=== PATIENT | male | born 1950 | race Caucasian/White ===

== ENCOUNTER 2020-12-17 18:07 | Emergency (ER) | payer OTHER ==
[2020-12-17 19:02] LABS: Absolute Lymphocytes (CBC) 0.5 K/uL (0.7-4.9); Basophils % 0.3 % (0-1.3); MPV 9.6 fL (7.6-11.3)
[2020-12-17 19:03] LABS: Protime INR 1.06
--- NOTE | 2020-12-17 19:07 | RAD REPORT ---
EXAM DESCRIPTION: RAD - Chest Single View - 12/17/2020 6:48 pm CLINICAL HISTORY: FEVER COMPARISON: <Comparisons> FINDINGS: No evidence of edema or pneumonia. The heart size is within normal limits.No acute osseous abnormality. No significant pleural effusions or pneumothorax. IMPRESSION: No acute cardiopulmonary disease.
[2020-12-17] MEDS ORDERED: MECLIZINE HCL 12.5 MG TAB ONE (19:19)
--- NOTE | 2020-12-17 19:33 | RAD REPORT ---
EXAM DESCRIPTION: CT - Head Brain Wo Cont - 12/17/2020 7:21 pm CLINICAL HISTORY: DIZZINESS COMPARISON: <Comparisons> TECHNIQUE: All CT scans are performed using dose optimization technique as appropriate and may inclu de automated exposure control or mA/KV adjustment according to patient size. FINDINGS: No intracranial hemorrhage, hydrocephalus or extra-axial fluid collection.No areas of brai n edema or evidence of midline shift. Circumferential thickening in the right maxillary sinus. The calvarium is intact. IMPRESSION: No acute intracranial abnormality.
[2020-12-17 19:44] LABS: ALT/SGPT 22 U/L (12-78); AST/SGOT 32 U/L (15-37); Albumin 3.1 g/dL (3.4-5.0); Alkaline Phosphatase 35 U/L (45-117); BUN Blood Urea Nitrogen 18 mg/dL (7-18); Bicarbonate 28 mmol/L (21-32); Bilirubin Direct 0.2 mg/dL (0-0.2); Bilirubin Total 0.5 mg/dL (0.2-1.0); Glucose Level 120 mg/dL (74-106); Magnesium 2.1 mg/dL (1.8-2.4); NT PRO-BNP 128 pg/mL (<125); Potassium 3.5 mmol/L (3.5-5.1); Protein, Total 6.7 g/dL (6.4-8.2); Sodium Level 135 mmol/L (136-145); Troponin (Emerg Dept Use Only) < 0.02 ng/mL (0.0-0.045)
[2020-12-17] MEDS ORDERED: NA CHLORIDE 0.9% 1,000 ML ONE (20:03)
--- NOTE | 2020-12-17 20:11 | RAD REPORT ---
EXAM DESCRIPTION: CT - Head angio - 12/17/2020 8:02 pm CLINICAL HISTORY: DIZZINESS COMPARISON: Same-day head CT TECHNIQUE: CT angiography of the head was performed with MIPs. All CT scans are performed using dose optimization technique as appropriate and may include automated exposure control or mA/KV adjustment according to patient size. FINDINGS: No evidence of aneurysm is detected. No flow-limiting stenosis or vascular malformation id entified. Antegrade flow is seen in the vertebral arteries. The vertebral arteries are codominant. The visualized dural venous sinuses are patent. IMPRESSION: No significant flow abnormality is detected.
--- NOTE | 2020-12-17 20:14 | RAD REPORT ---
EXAM DESCRIPTION: CT - Neck Angio - 12/17/2020 8:03 pm CLINICAL HISTORY: dizziness COMPARISON: No comparisons TECHNIQUE: CT angiography of the neck vessels was performed with MIPs. All CT scans are performed using dose optimization technique as appropriate and may include automated exposure control or mA/KV adjustment according to patient size. FINDINGS: A left aortic arch is identified with normal three vessel configuration of the great vesse ls. No significant flow abnormality is seen of the common carotid bilaterally. Moderate stenosis at the right carotid bulb secondary to primarily calcified plaque. Calcified and no ncalcified plaque is present the left carotid bulb but no stenosis. Both common carotid arteries are patent. Both vertebral arteries are patent. Scattered ground-glass opacities in the upper lungs. IMPRESSION: Moderate stenosis of the right carotid bulb. The left carotid system is patent as are th e vertebral arteries. Scattered ground-glass opacities in the upper lungs may reflect Covid-19 pneumonia.
[2020-12-17] MEDS ORDERED: ACETAMINOPHEN 500 MG TAB ONE (21:08)
--- NOTE | 2020-12-17 22:06 | ER ---
Nurse's Notes [facility] Name: Dar Johnson Age: 70 yrs Sex: Male : 1950 Arrival Date: 12/17/2020 Time: 18:09 Bed 23 Private MD: Diagnosis: SARS-associated coronavirus as the cause of diseases classified elsewhere;Diarrhea, unspecified;Dizziness and giddiness Presentation: 12/17 18:25 Chief complaint: Patient states: loss of appetite, nausea, diarrhea, not feeling well, iw for a few days , fever today, took two aspirin , unvaccinated. Coronavirus screen: Client presents with at least one sign or symptom that may indicate coronavirus-19. Standard/surgical mask placed on the client. Provider contacted for isolation considerations. Ebola Screen: Patient negative for fever greater than or equal to 101.5 degrees Fahrenheit, and additional compatible Ebola Virus Disease symptoms Patient denies exposure to infectious person. Patient denies travel to an Ebola-affected area in the 21 days before illness onset. No symptoms or risks identified at this time. Initial Sepsis Screen: Does the patient meet any 2 criteria? No. Patient's initial sepsis screen is negative. Does the patient have a suspected source of infection? No. Patient's initial sepsis screen is negative. Risk Assessment: Do you want to hurt yourself or someone else? Patient reports no desire to harm self or others. Onset of symptoms was December 13, 2020. 18:25 Method Of Arrival: EMS: [facility] iw 18:25 Acuity: DOYLE 3 iw 18:32 Care prior to arrival: Medication(s) given: Normal saline infusion, 1000 mL, IV iw initiated. 18 GA, in the right antecubital area. Historical: - Allergies: 18:27 No Known Allergies; iw - Home Meds: 18:27 BP med [Active]; iw - PMHx: 18:27 Hypertensive disorder; iw - PSHx: 18:27 None; iw - Immunization history:: Adult Immunizations up to date, Client reports having NOT received the Covid vaccine. - Social history:: Smoking status: unknown. Screenin:30 Abuse screen: Denies threats or abuse. Denies injuries from another. Nutritional zb screening: No deficits noted. Tuberculosis screening: No symptoms or risk factors identified. Fall Risk No fall in past 12 months (0 pts). No secondary diagnosis (0 pts). IV access (20 points). Ambulatory Aid- None/Bed Rest/Nurse Assist (0 pts). Gait- Weak (10 pts.). Mental Status- Oriented to own ability (0 pts). Total Robles Fall Scale indicates Low Risk Score (25-44 pts). Fall prevention measures have been instituted. Side Rails Up X 2 Placed close to Nursing Station Frequent Obs/Assesments occuring Family Present and informed to notify staff if they need to leave bedside As available Patient and Family Educated on Fall Prevention Program and strategies. Assessment: 18:30 General: Appears uncomfortable, Behavior is calm, Reports chills for 2-3 days, fever zb for 2-3 days, feeling ill for 2-3 days, fatigue for 2-3 days. Pain: Denies pain. 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 Gait is unsteady, Reports weakness in genalized. Cardiovascular: Patient's skin is warm and dry. Respiratory: Airway is patent Respiratory effort is even, unlabored, Respiratory pattern is regular, symmetrical, Breath sounds with crackles in left posterior lower lobe and right posterior lower lobe the patient has mild shortness of breath Denies cough, shortness of breath. GI: Abdomen is flat, Reports diarrhea, since 3 days. Derm: Skin is intact, is healthy with good turgor, Skin is dry, Skin is normal. Musculoskeletal: Range of motion: intact in all extremities. 19:30 Reassessment: Patient appears in no apparent distress at this time. Patient and/or zb family updated on plan of care and expected duration. Pain level reassessed. Patient is alert, oriented x 3, equal unlabored respirations, skin warm/dry/pink. IV fluid infusing. 20:30 Reassessment: Patient appears in no apparent distress at this time. Patient and/or zb family updated on plan of care and expected duration. Pain level reassessed. Patient is alert, oriented x 3, equal unlabored respirations, skin warm/dry/pink. notified ecp of temp. medication ordered and given. 21:22 Reassessment: Patient appears in no apparent distress at this time. Patient and/or zb family updated on plan of care and expected duration. Pain level reassessed. Patient is alert, oriented x 3, equal unlabored respirations, skin warm/dry/pink. Patient given PO fluids. IV fluid infusing. Urinal given to patient. 21:31 Reassessment: PO challenge completed. given water tolerated well. zb Vital Signs: 18:25 BP 124 / 73; Pulse 56; Resp 18; Pulse Ox 96% on R/A; iw 19:39 BP 119 / 66 Supine; Pulse 69; Resp 16; Temp 101.7(O); Pulse Ox 96% on R/A; Weight 88 zb kg; Height 6 ft. 0 in. (182.88 cm); 19:40 BP 113 / 68 Sitting; Pulse 70; Resp 16; Pulse Ox 97% on R/A; zb 19:43 BP 105 / 61 Standing; Pulse 73; Resp 16; Pulse Ox 97% on R/A; zb 20:42 BP 116 / 62; Pulse 76; Resp 16; Pulse Ox 95% on R/A; zb 21:42 BP 100 / 60; Pulse 68; Resp 16; Temp 98.4(O); Pulse Ox 95% on R/A; zb 19:39 Body Mass Index 26.31 (88.00 kg, 182.88 cm) zb ED Course: 18:09 Patient arrived in ED. iw 18:13 Mal Weber PA is PHCP. cp 18:13 Johnathan Neves MD is Attending Physician. cp 18:27 Triage completed. iw 18:27 Arm band placed on. iw 18:30 Patient has correct armband on for positive identification. pvc monitor on. zb 18:30 EKG done, by ED staff, reviewed by Ana Panchal RN. Inserted saline lock: 20 gauge in zb right antecubital area, using aseptic technique. Blood collected. 18:34 Ortho pt in the lobby, cell number [phone]. bd 18:39 Ana Panchal, RN is Primary Nurse. zb 18:48 XRAY Chest (1 view) In Process Unspecified. EDMS 19:15 COVID-19 : Document "Date of Symptom Onset" if Symptomatic. Sent. zb 19:21 CT Head Brain wo Cont In Process Unspecified. EDMS 20:02 CT Head Angio In Process Unspecified. EDMS 20:02 CT Neck Angio In Process Unspecified. EDMS 22:00 No provider procedures requiring assistance completed. IV discontinued, intact, zb bleeding controlled, No redness/swelling at site. Pressure dressing applied. Administered Medications: 19:13 Drug: Meclizine 25 mg Route: PO; zb 22:00 Follow up: Response: No adverse reaction; Marked relief of symptoms zb 19:49 Drug: NS 0.9% 500 ml Route: IV; Rate: bolus; Site: left antecubital; zb 21:18 Follow up: Response: No adverse reaction; IV Status: Completed infusion; IV Intake: zb 500ml 19:49 Drug: NS 0.9% 500 ml Route: IV; Rate: 125 ml/hr; Site: left antecubital; zb 22:00 Follow up: Response: No adverse reaction; IV Status: Completed infusion; IV Intake: zb 500ml 21:00 Drug: Tylenol 1000 mg Route: PO; zb 22:00 Follow up: Response: No adverse reaction zb Intake: 21:18 IV: 500ml; Total: 500ml. zb 22:00 IV: 500ml; Total: 1000ml. zb Outcome: 22:00 Discharged to home ambulatory. zb 22:00 Condition: stable 22:00 Discharge instructions given to patient, Instructed on discharge instructions, follow up and referral plans. Demonstrated understanding of instructions, follow-up care. 22:05 Discharge ordered by . anabel 22:24 Patient left the ED. mw2 Signatures: Dispatcher [employer] EDMS Vinita Pringle Irene, RN RN iw Page, Corey, PA PA cp [place], MyKena mw2 Ana Panchal RN RN zb Corrections: (The following items were deleted from the chart) 12/18 00:19 08 21:42 BP 100 / 60; Pulse 68bpm; Resp 16bpm; Pulse Ox 95% RA; zb zb
--- NOTE | 2020-12-17 22:06 | EDPHYS ---
Physician Documentation [facility] Name: Dar Johnson Age: 70 yrs Sex: Male : 1950 Arrival Date: 12/17/2020 Time: 18:09 Bed 23 Private MD: ED Physician Johnathan Neves HPI: 12/17 18:30 This 70 yrs old Male presents to ER via EMS with complaints of Fever, cp Diarrhea, General Weakness. 18:30 The patient reports fever, not measured (subjective). cp 18:30 Onset: The symptoms/episode began/occurred 1 week(s) ago. cp 18:30 Associated signs and symptoms: Pertinent positives: decreased appetite, diarrhea, cp dizziness. 18:30 Severity of symptoms: in the emergency department the symptoms are unchanged despite cp home interventions. Historical: - Allergies: 18:27 No Known Allergies; iw - Home Meds: 18:27 BP med [Active]; iw - PMHx: 18:27 Hypertensive disorder; iw - PSHx: 18:27 None; iw - Immunization history:: Adult Immunizations up to date, Client reports having NOT received the Covid vaccine. - Social history:: Smoking status: unknown. ROS: 18:35 Constitutional: Positive for body aches, fever, poor PO intake. cp 18:35 Eyes: Negative for injury, pain, redness, and discharge. cp 18:35 Neck: Negative for pain with movement, pain at rest, stiffness. 18:35 Cardiovascular: Negative for chest pain, palpitations. 18:35 Respiratory: Positive for cough, Negative for shortness of breath, wheezing. 18:35 Abdomen/GI: Positive for diarrhea, Negative for abdominal pain, vomiting, constipation. 18:35 : Negative for urinary symptoms. 18:35 Skin: Negative for cellulitis, rash. 18:35 Neuro: Positive for dizziness, weakness, Negative for altered mental status, headache. 18:35 All other systems are negative. Exam: 18:40 Constitutional: The patient appears in no acute distress, alert, awake, cp non-diaphoretic, non-toxic, well developed, well nourished, febrile. 18:40 Head/Face: Normocephalic, atraumatic. cp 18:40 Eyes: Periorbital structures: appear normal, Pupils: equal, round, and reactive to light and accomodation, Extraocular movements: intact throughout, Conjunctiva: normal, no exudate, no injection, Sclera: no appreciated abnormality, Lids and lashes: appear normal, bilaterally. 18:40 ENT: External ear(s): are unremarkable, Ear canal(s): are normal, clear, TM's: bulging, is not appreciated, bilaterally, dullness, bilaterally, erythema, is not appreciated, bilaterally, Nose: is normal, Mouth: Lips: dry, Oral mucosa: moist, Posterior pharynx: Airway: no evidence of obstruction, patent, Tonsils: are normal in appearance, erythema, is not appreciated, exudate, is not appreciated. 18:40 Neck: ROM/movement: is normal, is supple, without pain, no range of motions limitations, no meningismus, Lymph nodes: no appreciated lymphadenopathy. 18:40 Chest/axilla: Inspection: normal, Palpation: is normal, no crepitus, no tenderness. 18:40 Cardiovascular: Rate: normal, Rhythm: regular, Edema: is not appreciated, JVD: is not appreciated. 18:40 Respiratory: the patient does not display signs of respiratory distress, Respirations: normal, no use of accessory muscles, no retractions, labored breathing, is not present, Breath sounds: are clear throughout, no decreased breath sounds, no stridor, no wheezing. 18:40 Abdomen/GI: Inspection: abdomen appears normal, Bowel sounds: active, all quadrants, Palpation: abdomen is soft and non-tender, in all quadrants, rebound tenderness, is not appreciated, voluntary guarding, is not appreciated, involuntary guarding, is not appreciated. 18:40 Back: pain, is absent, ROM is normal. 18:40 Skin: cellulitis, is not appreciated, no rash present. 18:40 Neuro: Orientation: to person, place \\T\\ time. Mentation: is normal, Cerebellar function: Romberg testing is negative, heel to almodovar testing is normal, Motor: moves all fours, strength is normal, Sensation: is normal. 19:15 ECG was reviewed by the Attending Physician. cp Vital Signs: 18:25 BP 124 / 73; Pulse 56; Resp 18; Pulse Ox 96% on R/A; iw 19:39 BP 119 / 66 Supine; Pulse 69; Resp 16; Temp 101.7(O); Pulse Ox 96% on R/A; Weight 88 zb kg; Height 6 ft. 0 in. (182.88 cm); 19:40 BP 113 / 68 Sitting; Pulse 70; Resp 16; Pulse Ox 97% on R/A; zb 19:43 BP 105 / 61 Standing; Pulse 73; Resp 16; Pulse Ox 97% on R/A; zb 20:42 BP 116 / 62; Pulse 76; Resp 16; Pulse Ox 95% on R/A; zb 21:42 BP 100 / 60; Pulse 68; Resp 16; Temp 98.4(O); Pulse Ox 95% on R/A; zb 19:39 Body Mass Index 26.31 (88.00 kg, 182.88 cm) zb MDM: 18:14 Patient medically screened. cp 19:00 Differential diagnosis: viral Infection, bacterial infection, bronchitis, pneumonia cp UTI, gastroenteritis, meningitis, COVID-19, electrolyte abnormality, dehydration, acute MT. 22:05 Data reviewed: vital signs, nurses notes, lab test result(s), EKG, radiologic studies, cp CT scan, plain films. 22:05 Test interpretation: by ED physician or midlevel provider: ECG, plain radiologic cp studies. Counseling: I had a detailed discussion with the patient and/or guardian regarding: the historical points, exam findings, and any diagnostic results supporting the discharge/admit diagnosis, lab results, radiology results, the need for outpatient follow up, a family practitioner, to return to the emergency department if symptoms worsen or persist or if there are any questions or concerns that arise at home. Response to treatment: the patient's symptoms have markedly improved after treatment, patient is well hydrated. VSS. Patient reports symptoms improved. Patient appears non-toxic and no signs of respiratory distress. Will discharge to home for continued monitoring. 12/17 18:31 Order name: Basic Metabolic Panel; Complete Time: 20:33 cp 12/17 20:34 Interpretation: Normal except: NA 135; GLUC 120; CRE 1.32; GFR 53; CA 7.7. cp 12/17 18:31 Order name: CBC with Diff; Complete Time: 19:24 cp 12/17 20:34 Interpretation: Normal except: WBC 3.70; MCV 88.8; PLT 109; KARLIE% 75.9; LYM% 14.0; LYMA cp 0.5. 12/17 18:31 Order name: LFT's; Complete Time: 20:33 / 20:33 Interpretation: Normal except: ALK 35; ALB 3.1; GLOB 3.6; A/G 0.9. / 18:31 Order name: Magnesium; Complete Time: 20:33 / 18:31 Order name: NT PRO-BNP; Complete Time: 20:33 / 20:33 Interpretation: Abnormal: NT PRO-BNP 128. 12/17 18:31 Order name: PT-INR; Complete Time: 19:24 12/17 18:31 Order name: Troponin (emerg Dept Use Only); Complete Time: 20:33 cp 12/17 18:31 Order name: XRAY Chest (1 view); Complete Time: 19:24 12/17 20:35 Interpretation: Report review. 12/17 18:56 Order name: Influenza Screen (a \\T\\ B) 12/17 18:56 Order name: COVID-19 : Document "Date of Symptom Onset" if Symptomatic. 12/17 18:56 Order name: Influenza Screen (A ; Complete Time: 21:58 EDNC 12/17 21:18 Order name: SARS-COV-2 RT PCR; Complete Time: 21:58 EDMS 12/17 21:58 Interpretation: Results reviewed. 12/17 22:11 Order name: Urine Dipstick-Ancillary EDNC / 18:31 Order name: EKG; Complete Time: 18:32 12/17 18:31 Order name: Cardiac monitoring; Complete Time: 19:15 12/17 18:31 Order name: EKG - Nurse/Tech; Complete Time: 19:15 12/17 18:31 Order name: IV Saline Lock; Complete Time: 19:15 / 18:31 Order name: Labs collected and sent; Complete Time: 19:15 12/17 18:31 Order name: O2 Per Protocol; Complete Time: 18:44 12/17 18:31 Order name: O2 Sat Monitoring; Complete Time: 18:44 12/17 18:31 Order name: Orthostatics; Complete Time: 20:36 12/17 18:31 Order name: CT Head Brain wo Cont; Complete Time: 20:33 12/17 20:34 Interpretation: Report reviewed. 12/17 19:25 Order name: CT Head Angio; Complete Time: 20:33 cp 12/17 19:25 Order name: CT Neck Angio; Complete Time: 20:33 cp 12/17 21:18 Order name: PO challenge; Complete Time: 21:31 cp EC:15 Rate is 71 beats/min. Rhythm is regular. MS interval is normal. QRS interval is normal. cp QT interval is normal. T waves are Inverted in lead aVR. Interpreted by me. Reviewed by me. Administered Medications: 19:13 Drug: Meclizine 25 mg Route: PO; zb 22:00 Follow up: Response: No adverse reaction; Marked relief of symptoms zb 19:49 Drug: NS 0.9% 500 ml Route: IV; Rate: bolus; Site: left antecubital; zb 21:18 Follow up: Response: No adverse reaction; IV Status: Completed infusion; IV Intake: zb 500ml 19:49 Drug: NS 0.9% 500 ml Route: IV; Rate: 125 ml/hr; Site: left antecubital; zb 22:00 Follow up: Response: No adverse reaction; IV Status: Completed infusion; IV Intake: zb 500ml 21:00 Drug: Tylenol 1000 mg Route: PO; zb 22:00 Follow up: Response: No adverse reaction zb Disposition: 12/18 07:03 Co-signature as Attending Physician, Johnathan Neves MD. rn Disposition Summary: 12/17/20 22:05 Discharge Ordered Location: Home cp Problem: new cp Symptoms: have improved cp Condition: Stable cp Diagnosis - SARS-associated coronavirus as the cause of diseases classified elsewhere cp - Diarrhea, unspecified cp - Dizziness and giddiness cp Followup: cp - With: Private Physician - When: 2 - 3 days - Reason: Worsening of condition Discharge Instructions: - Discharge Summary Sheet cp - Diarrhea, Adult cp - Dizziness cp - COVID-19 cp - Things to Know about the COVID-19 Pandemic - [facility] cp - 10 Things You Can Do to Manage Your COVID-19 Symptoms at Home - [facility] cp - COVID-19: Quarantine vs. Isolation - [facility] cp - Prevent the Spread of COVID-19 if You Are Sick - [facility] cp Forms: - Medication Reconciliation Form cp - Thank You Letter cp - Antibiotic Education cp - Prescription Opioid Use cp Prescriptions: - Meclizine 25 mg Oral Tablet - take 1 tablet by ORAL route every 8 hours As needed; 30 tablet; Refills: 0, cp Product Selection Permitted - Zofran 4 mg Oral Tablet - take 1 tablet by ORAL route every 12 hours As needed; 20 tablet; Refills: 0, cp Product Selection Permitted Signatures: Dispatcher [employer] EDChiqui Chong RN RN iw Nieto, Roman, MD MD rn Page, Corey, PA PA cp Brown, Zipporah, RN RN zb Corrections: (The following items were deleted from the chart) 12/17 19:54 18:56 CORONAVIRUS ordered. EDMS EDMS 20:34 20:33 Normal except: NA 135; GLUC 120; CRE 1.32; GFR 53. cp cp
[2020-12-17 22:12] LABS: Urine Blood Trace-intact (Negative); Urine Glucose Negative (Negative); Urine Protein 2+ (Negative); Urine pH 5.5 (5.0-7.0)
[2020-12-17 22:35] VITALS: TEMP 101.7
[2020-12-17 22:40] VITALS: O2SAT 95
[2020-12-17 22:42] VITALS: BP 100/60
--- NOTE | 2020-12-18 07:57 | EKG ---
Test Date: 2020-12-17 Test Time: 19:09:15 Fur Blender: NEERAJ MEASUREMENT RESULTS: Intervals: Rate: 71 SD: 166 QRSD: 82 QT: 404 QTc: 439 [place]: P: 51 SD: 166 QRS: -54 T: 55 INTERPRETIVE STATEMENTS: Normal sinus rhythm Left axis deviation Septal infarct, age undetermined Abnormal ECG Compared to ECG 05/15/2014 06:54:45 Left-axis deviation now present Myocardial infarct finding now present Electronically Signed On 12-18-20 07:56:00 CDT by Yousuf Harp
== END 2020-12-17 22:24 | disposition home or self-care (01) ==
LOC: ER 18:07
DX: U07.1 COVID-19 (principal); R42 Dizziness and giddiness; I10 Essential (primary) hypertension
CPT/HCPCS: 96361; 93005; 85025; 80048; 36415; 83735; 85610; 80076; 81003; 84484; 83880; 87804 ×2; 70450; 70496; 70498; 71045; 96360; 99284; U0003; Q9967; J7030

== ENCOUNTER 2020-12-22 15:06 | Inpatient (IN) | payer OTHER ==
--- NOTE | 2020-12-22 17:19 | RAD REPORT ---
EXAM DESCRIPTION: RAD - Chest Single View - 12/22/2020 4:40 pm CLINICAL HISTORY: SOB, COVID positive COMPARISON: December 17 TECHNIQUE: AP portable chest image was obtained 12/22/2020 4:40 pm . FINDINGS: Interstitial and alveolar opacities have developed in both lung edmondson relatively sparing the left upper lung field. Findings are progressive from December 17. No cavitation or mass. Heart and v asculature are normal. No measurable pleural effusion and no pneumothorax. No acute bony abnormality seen. No acute aortic findings suspected. IMPRESSION: Mild bilateral COVID-19 pneumonia pattern progressive from December 17.
[2020-12-22 17:20] LABS: Absolute Lymphocytes (CBC) 0.6 K/uL (0.7-4.9); Basophils % 0.2 % (0-1.3); Hematocrit 42.2 % (39.6-49.0); Lymphocytes % 8.6 % (15.3-44.8); MPV 8.8 fL (7.6-11.3); RBC Red Blood Cell Count 4.78 M/uL (4.33-5.43)
[2020-12-22 17:29] LABS: Protime INR 1.03
[2020-12-22] MEDS ORDERED: MECLIZINE HCL 12.5 MG TAB ONE (17:41)
[2020-12-22] MEDS ORDERED: NA CHLORIDE 0.9% 500 ML ONE (17:41)
[2020-12-22 18:10] LABS: Arterial Blood Carboxyhemoglob 1.1 % (0-1.5); Blood Gas Oxyhemoglobin 91.9 % (94-97); Blood O2 Saturation 93.8 % (92-98.5)
[2020-12-22] MEDS ORDERED: METHYLPREDNISOLONE 125 MG INJ ONE (18:33)
[2020-12-22 18:57] LABS: ALT/SGPT 164 U/L (12-78); AST/SGOT 230 U/L (15-37); Albumin 2.7 g/dL (3.4-5.0); Alkaline Phosphatase 75 U/L (45-117); BUN Blood Urea Nitrogen 12 mg/dL (7-18); Bicarbonate 28 mmol/L (21-32); Bilirubin Direct 0.2 mg/dL (0-0.2); Bilirubin Total 0.6 mg/dL (0.2-1.0); Glucose Level 116 mg/dL (74-106); Magnesium 1.8 mg/dL (1.8-2.4); NT PRO-BNP 271 pg/mL (<125); Potassium 3.2 mmol/L (3.5-5.1); Protein, Total 6.7 g/dL (6.4-8.2); Sodium Level 135 mmol/L (136-145); Troponin (Emerg Dept Use Only) < 0.02 ng/mL (0.0-0.045)
[2020-12-22 19:24] LABS: Ferritin 4891.9 ng/mL (26-388)
--- NOTE | 2020-12-22 20:07 | EDPHYS ---
Physician Documentation [facility] Name: Dar Johnson Age: 70 yrs Sex: Male : 1950 Arrival Date: 12/22/2020 Time: 16:19 Bed 13 Private MD: Delroy Fernando ED Physician John Sneed HPI: 12/22 16:45 This 70 yrs old Male presents to ER via EMS with complaints of Covid + Low O2.cp 16:45 The patient or guardian reports difficulty breathing. cp 16:45 Onset: The symptoms/episode began/occurred gradually, and became worse today. cp Associated signs and symptoms: Pertinent positives: shortness of breath, Pertinent negatives: abdominal pain, chest pain, diarrhea, vomiting. Modifying factors: the patient symptoms are aggravated by activity. Historical: - Allergies: 16:25 No Known Allergies; ss - PMHx: 16:25 Hypertensive disorder; ss - Immunization history:: Client reports having NOT received the Covid vaccine. - Social history:: Smoking status: Patient denies any tobacco usage or history of. ROS: 16:50 Constitutional: Negative for body aches, chills, fever, poor PO intake. cp 16:50 Eyes: Negative for injury, pain, redness, and discharge. cp 16:50 ENT: Negative for ear pain, sore throat, difficulty swallowing, difficulty handling secretions. 16:50 Cardiovascular: Negative for chest pain, edema, palpitations. 16:50 Respiratory: Positive for cough, with no reported sputum, shortness of breath, at rest. Negative for wheezing. 16:50 Abdomen/GI: Negative for abdominal pain, vomiting, diarrhea, constipation. 16:50 Skin: Negative for rash. 16:50 Neuro: Negative for altered mental status, headache, syncope, weakness. 16:50 All other systems are negative. Exam: 16:55 Constitutional: The patient appears in no acute distress, alert, awake, cp non-diaphoretic, non-toxic, well developed, well nourished. 16:55 Head/Face: Normocephalic, atraumatic. cp 16:55 Eyes: Periorbital structures: appear normal, Conjunctiva: normal, no exudate, no injection, Sclera: no appreciated abnormality, Lids and lashes: appear normal, bilaterally. 16:55 ENT: External ear(s): are unremarkable, Nose: is normal, Mouth: Lips: moist, Oral mucosa: pink and intact, moist, Posterior pharynx: Airway: no evidence of obstruction, patent, swelling, is not appreciated, erythema, is not appreciated, exudate, is not appreciated. 16:55 Neck: ROM/movement: is normal, is supple, without pain, no range of motions limitations, no meningismus. 16:55 Chest/axilla: Inspection: normal, Palpation: is normal, no crepitus, no tenderness. 16:55 Cardiovascular: Rate: normal, Rhythm: regular, Edema: is not appreciated, JVD: is not appreciated. 16:55 Respiratory: the patient does not display signs of respiratory distress, Respirations: labored breathing, is not present, shallow respirations, that is mild, Breath sounds: decreased breath sounds, that are mild, throughout, stridor, is not appreciated, wheezing: is not appreciated. 16:55 Abdomen/GI: Inspection: abdomen appears normal, Palpation: abdomen is soft and non-tender, in all quadrants, involuntary guarding, is not appreciated. 16:55 Back: pain, is absent, ROM is normal. 16:55 Skin: no rash present. 16:55 Neuro: Orientation: to person, place \\T\\ time. Mentation: is normal, Cerebellar function: is grossly normal, Motor: moves all fours, strength is normal, Sensation: is normal. 17:57 ECG was reviewed by the Attending Physician. cp Vital Signs: 16:23 Pulse 88; Resp 17; Temp 99.7(O); Pulse Ox 96% on 4 lpm NC; Weight 81.65 kg; Height 6 ss ft. 0 in. (182.88 cm); Pain 0/10; 18:15 Pulse 88; Resp 14; Pulse Ox 95% on 2 lpm NC; vg1 18:45 BP 139 / 75; vg1 19:24 BP 140 / 75; Pulse 80; Resp 16; Pulse Ox 94% on 2 lpm NC; vg1 20:38 BP 136 / 80; Pulse 88; Resp 18; Pulse Ox 96% on 2 lpm NC; vg1 16:23 Body Mass Index 24.41 (81.65 kg, 182.88 cm) ss MDM: 16:26 Patient medically screened. cp 16:30 Differential diagnosis: bronchitis, bronchitis, pneumonia respiratory failure, cp pulmonary embolism. 20:00 Data reviewed: vital signs, nurses notes, lab test result(s), EKG, radiologic studies, cp plain films. 20:00 Data interpreted: Pulse oximetry: on 2L(s) per nasal canula, is 94 %. Interpretation: cp acceptable, Plan: O2 by Mask applied. Test interpretation: by ED physician or midlevel provider: ECG, plain radiologic studies. Counseling: I had a detailed discussion with the patient and/or guardian regarding: the historical points, exam findings, and any diagnostic results supporting the discharge/admit diagnosis, lab results, radiology results, the need for further work-up and treatment in the hospital. Response to treatment: the patient's symptoms have mildly improved after treatment. Physician consultation: Nima BANERJEE was contacted at 20:00, regarding admission, to the telemetry unit. patient's condition. 12/22 16:26 Order name: Basic Metabolic Panel; Complete Time: 19:48 cp 12/22 19:49 Interpretation: Normal except: NA 135; K 3.2; GLUC 116; GFR 68; CA 8.0. cp 12/22 16:26 Order name: CBC with Diff; Complete Time: 17:35 cp 12/22 17:35 Interpretation: Normal except: WBC 6.80; PLT 249; KARLIE% 84.0; LYM% 8.6; LYMA 0.6. cp 12/22 16:26 Order name: LFT's; Complete Time: 19:48 cp 12/22 19:49 Interpretation: Normal except: AST 230; ALT 164; ALB 2.7; A/G 0.7; GLOB 4.0. cp 12/22 16:26 Order name: Magnesium; Complete Time: 19:48 cp 12/22 16:26 Order name: NT PRO-BNP; Complete Time: 19:48 cp 12/22 16:26 Order name: PT-INR; Complete Time: 17:35 cp 12/22 16:26 Order name: Troponin (emerg Dept Use Only); Complete Time: 19:48 cp 12/22 16:26 Order name: COVID-19 : Document "Date of Symptom Onset" if Symptomatic. cp 12/22 16:26 Order name: CRP; Complete Time: 19:48 cp 12/22 19:49 Interpretation: Abnormal: C-REACTIVE PROT 122.00. cp 12/22 16:26 Order name: ABG; Complete Time: 19:48 cp 12/22 16:26 Order name: Ferritin; Complete Time: 19:48 cp 12/22 19:49 Interpretation: Abnormal: MICHELLE 4891.9. cp 12/22 16:26 Order name: D-Dimer; Complete Time: 17:35 cp 12/22 17:36 Interpretation: Abnormal: D-DIMER 1448. cp 12/22 16:43 Order name: Lactate; Complete Time: 19:48 cp 12/23 04:08 Order name: CBC with Automated Diff EDMS 12/22 16:26 Order name: XRAY Chest (1 view); Complete Time: 17:24 cp 12/22 17:24 Interpretation: Report review. cp 12/22 19:52 Order name: Chest For Pe Angio; Complete Time: 21:15 EDMS 12/22 21:16 Interpretation: Report reviewed. cp 12/23 04:38 Order name: Comprehensive Metabolic Panel EDMS 12/23 04:38 Order name: Phosphorus EDMS 12/23 04:38 Order name: C-Reactive Protein EDMS 12/23 04:38 Order name: Magnesium EDMS 12/23 04:38 Order name: Ferritin EDMS 12/23 05:08 Order name: Procalcitonin EDMS 12/24 03:31 Order name: CBC with Automated Diff EDMS 12/24 03:44 Order name: Comprehensive Metabolic Panel EDMS 12/24 05:00 Order name: Manual Differential EDMS 12/24 09:57 Order name: Potassium EDMS 12/22 16:26 Order name: EKG; Complete Time: 16:27 cp 12/22 16:26 Order name: Cardiac monitoring; Complete Time: 17:55 cp 12/22 16:26 Order name: EKG - Nurse/Tech; Complete Time: 17:55 cp 12/22 16:26 Order name: IV Saline Lock; Complete Time: 17:15 cp 12/22 16:26 Order name: Labs collected and sent; Complete Time: 17:15 cp 12/22 16:26 Order name: O2 Per Protocol; Complete Time: 17:15 cp 12/22 16:26 Order name: O2 Sat Monitoring; Complete Time: 17:15 cp 12/22 17:27 Order name: Labs - recollect needed: recollect green top; Complete Time: 18:08 ss 12/22 21:25 Order name: CONS Physician Consult EDMS EC:57 Rate is 86 beats/min. Rhythm is regular. MS interval is normal. QRS interval is normal. cp QT interval is normal. T waves are Inverted in lead aVR. Interpreted by me. Reviewed by me. Administered Medications: 17:27 Drug: NS 0.9% 500 ml Route: IV; Rate: 500 ml/hr; Site: right antecubital; vg1 18:16 Follow up: IV Status: Completed infusion; IV Intake: 500ml vg1 17:29 Not Given (Patient Refused): Meclizine 25 mg PO once vg1 18:16 Drug: SOLU-Medrol (methylPrednisoLONE) 125 mg Route: IVP; Site: right antecubital; vg1 20:38 Follow up: Response: No adverse reaction vg1 20:38 Drug: Potassium Effervescent Tablet 50 mEq Route: PO; vg1 Disposition Summary: 12/22/20 20:06 Hospitalization Ordered Hospitalization Status: Inpatient Admission cp Provider: Nima Pabon cp Condition: Stable cp Problem: new cp Symptoms: have improved cp Bed/Room Type: Standard cp Location: Telemetry/MedSurg (Inpatient)(12/24/20 12:41) dw Room Assignment: 424(12/24/20 12:41) dw Diagnosis - Other viral pneumonia cp - SARS-associated coronavirus as the cause of diseases classified elsewhere cp - Hypoxemia cp Forms: - Medication Reconciliation Form cp - SBAR form cp Signatures: Dispatcher [employer] EDMS Alexandrea Hernandez RN RN mw Woody, Diana, RN RN dw Smirch, Shelby, RN RN ss Page, Corey, PA PA cp Garcia, Victoria, RN RN vg1 Corrections: (The following items were deleted from the chart) 19:51 17:37 Chest For PE Angio+CT.RAD.BRZ ordered. EDWI EDMS 21:03 20:06 Telemetry/MedSurg (Inpatient) [facility] 21:03 20:06 cp 12/24 12:41 12/22 21:03 BR ER HOLD mw 12/24 12:41 12/22 21:03 ERHOLD- [facility]
--- NOTE | 2020-12-22 20:07 | ER ---
Nurse's Notes [facility] Name: Dar Johnson Age: 70 yrs Sex: Male : 1950 Arrival Date: 12/22/2020 Time: 16:19 Bed 13 Private MD: Delroy Fernando Diagnosis: Other viral pneumonia;SARS-associated coronavirus as the cause of diseases classified elsewhere;Hypoxemia Presentation: 12/22 16:23 Chief complaint: EMS states: COVID + 3 days ago. Low O2 noted at home today 83% on RA. ss Coronavirus screen: Client presents with at least one sign or symptom that may indicate coronavirus-19. Standard/surgical mask placed on the client. Provider contacted for isolation considerations. Ebola Screen: Patient denies exposure to infectious person. Patient denies travel to an Ebola-affected area in the 21 days before illness onset. Initial Sepsis Screen: Does the patient meet any 2 criteria? No. Patient's initial sepsis screen is negative. Does the patient have a suspected source of infection? No. Patient's initial sepsis screen is negative. Risk Assessment: Do you want to hurt yourself or someone else? Patient reports no desire to harm self or others. Onset of symptoms was December 17, 2020. 16:23 Method Of Arrival: EMS: [facility] 16:23 Acuity: DOYLE 3 ss Historical: - Allergies: 16:25 No Known Allergies; ss - PMHx: 16:25 Hypertensive disorder; ss - Immunization history:: Client reports having NOT received the Covid vaccine. - Social history:: Smoking status: Patient denies any tobacco usage or history of. Screenin:31 Abuse screen: Denies threats or abuse. Nutritional screening: No deficits noted. vg1 Tuberculosis screening: No symptoms or risk factors identified. Fall Risk No fall in past 12 months (0 pts). No secondary diagnosis (0 pts). IV access (20 points). Ambulatory Aid- None/Bed Rest/Nurse Assist (0 pts). Gait- Normal/Bed Rest/Wheelchair (0 pts) Mental Status- Oriented to own ability (0 pts). Total Robles Fall Scale indicates No Risk (0-24 pts). Assessment: 17:30 General: Appears in no apparent distress. comfortable, Behavior is calm, cooperative. vg1 Pain: Denies pain. Neuro: Level of Consciousness is awake, alert, obeys commands, Oriented to person, place, time, situation. Cardiovascular: Patient's skin is warm and dry. Respiratory: Airway is patent Respiratory effort is even, unlabored, Breath sounds are diminished bilaterally. GI: No signs and/or symptoms were reported involving the gastrointestinal system. : No signs and/or symptoms were reported regarding the genitourinary system. EENT: No signs and/or symptoms were reported regarding the EENT system. Derm: Skin is intact, is healthy with good turgor. Musculoskeletal: Circulation, motion, and sensation intact. 17:30 Reassessment: Pt refused Meclizine medication, stated 'can I hold off on that? I'm not vg1 feeling dizzy at the moment.' Provider notified. 18:15 Reassessment: Patient appears in no apparent distress at this time. No changes from vg1 previously documented assessment. Patient and/or family updated on plan of care and expected duration. Pain level reassessed. Patient is alert, oriented x 3, equal unlabored respirations, skin warm/dry/pink. 19:24 Reassessment: Patient appears in no apparent distress at this time. No changes from vg1 previously documented assessment. Patient and/or family updated on plan of care and expected duration. Pain level reassessed. Patient is alert, oriented x 3, equal unlabored respirations, skin warm/dry/pink. Patient denies pain at this time. Vital Signs: 16:23 Pulse 88; Resp 17; Temp 99.7(O); Pulse Ox 96% on 4 lpm NC; Weight 81.65 kg; Height 6 ss ft. 0 in. (182.88 cm); Pain 0/10; 18:15 Pulse 88; Resp 14; Pulse Ox 95% on 2 lpm NC; vg1 18:45 BP 139 / 75; vg1 19:24 BP 140 / 75; Pulse 80; Resp 16; Pulse Ox 94% on 2 lpm NC; vg1 20:38 BP 136 / 80; Pulse 88; Resp 18; Pulse Ox 96% on 2 lpm NC; vg1 16:23 Body Mass Index 24.41 (81.65 kg, 182.88 cm) ED Course: 16:19 Patient arrived in ED. 16:23 Mal Weber PA is PHCP. 16:23 John Sneed MD is Attending Physician. cp 16:25 Triage completed. ss 16:25 Arm band placed on right wrist. ss 16:40 XRAY Chest (1 view) In Process Unspecified. EDMS 17:14 Milagros Garcia RN is Primary Nurse. vg1 17:14 Inserted saline lock: 20 gauge in right antecubital area, using aseptic technique. dh4 Blood collected. 17:31 Patient has correct armband on for positive identification. Bed in low position. Call vg1 light in reach. Side rails up X 1. 20:04 Nima Pabon PA is Hospitalizing Provider. cp 20:13 Chest For Pe Angio In Process Unspecified. EDMS 22:05 Delroy Fernando MD is Private Physician. cp 22:27 Report given to Barulio VELASCO. vg1 22:27 No provider procedures requiring assistance completed. Patient admitted, IV remains in vg1 place. 12/23 04:44 Primary Nurse role handed off by Milagros Garcia RN mw2 Administered Medications: 12/22 17:27 Drug: NS 0.9% 500 ml Route: IV; Rate: 500 ml/hr; Site: right antecubital; vg1 18:16 Follow up: IV Status: Completed infusion; IV Intake: 500ml vg1 17:29 Not Given (Patient Refused): Meclizine 25 mg PO once vg1 18:16 Drug: SOLU-Medrol (methylPrednisoLONE) 125 mg Route: IVP; Site: right antecubital; vg1 20:38 Follow up: Response: No adverse reaction vg1 20:38 Drug: Potassium Effervescent Tablet 50 mEq Route: PO; vg1 Intake: 18:16 IV: 500ml; Total: 500ml. vg1 Outcome: 20:06 Decision to Hospitalize by Provider. cp 22:27 Admitted to ER Hold. Please see [facility] for further documentation. vg1 22:27 Condition: stable 22:27 Instructed on the need for admit. 12/24 13:37 Patient left the ED. iw Signatures: Dispatcher [employer] Chiqui Ramsey RN RN iw Teodora Norman RN RN ss Page, Corey, PA PA cp Matt Diaz mw2 Ej Stevens 4 Milagros Garcia RN RN vg1
--- NOTE | 2020-12-22 20:35 | RAD REPORT ---
EXAM DESCRIPTION: CT - Chest For Pe Angio - 12/22/2020 8:13 pm CLINICAL HISTORY: SOB, COVID positive COMPARISON: Chest Single View dated 12/22/2020 TECHNIQUE: Dynamically enhanced 3 mm thick images of the chest were obtained during administration o f approximately 150mL Isovue 370 IV contrast. Coronal and oblique MIP reconstruction images were gene rated and reviewed. Exam utilizes a protocol to evaluate the pulmonary arterial tree. All CT scans are performed using dose optimization technique as appropriate and may include automated exposure control or mA/KV adjustment according to patient size. FINDINGS: No pulmonary emboli are identified. The aorta as imaged shows no acute or suspicious finding. No pericardial thickening or effusion. Scattered ground-glass opacification throughout the lung edmondson with no consolidation, mass or cavita tion. No endobronchial lesion. Minimal atelectasis in the posterior left gutter. No pleural effusion or pleural thickening. No mediastinal or hilar suspicious masses. No chest wall masses or abnormal axillary lymphadenopathy. IMPRESSION: No pulmonary emboli identified. Moderate severity COVID-19 pneumonia.
[2020-12-22] MEDS ORDERED: POTASSIUM 25 MEQ EFFERV TAB ONE (20:58)
--- NOTE | 2020-12-22 22:21 | P.HP ---
Certification for Inpatient Patient admitted to: Inpatient With expected LOS: >2 Midnights Patient will require the following post-hospital care: None Practitioner: I am a practitioner with admitting privileges, knowledge of patient current condition, hospital course, and medical plan of care. Services: Services provided to patient in accordance with Admission requirements found in Title 42 Section 412.3 of the Code of Federal Regulations Patient History Date of Service: 12/22/20 Primary Care Provider: Abdullahi Reason for admission: covid pneumonia History of Present Illness: Mr. Johnson is a 70 yo M who presents with fever and SOB. He was 83% on RA at home and was brought in by EMS. he says his symptoms began 5 days ago, and he tested positive for COVID on Thursday. He reports cough, diarrhea and fever. CTPE shows moderate pneumonia, no evidence of pulmonary embolism. Ddimer 1448. Ferritin 4891. AST 230, ALT 164. CRP 122. K 3.2. Allergies No Known Drug Allergies Allergy (Verified 05/15/14 00:10) Unknown Home Medications: Losartan Potassium [Cozaar] 25 mg PO DAILY 05/14/14 cloNIDine HCL [Catapres] 0.1 mg PO PRN PRN 05/14/14 Metoprolol Tartrate [Lopressor*] 25 mg PO BID #60 tab 05/15/14 - Past Medical/Surgical History Diabetic: No -: HTN -: HYPERLIPIDEMIA Past Surgical History: Patient denies surgical history - Family History Mother -: Heart disease Father -: Cancer - Social History Smoking Status: Never smoker Alcohol use: No CD- Drugs: No Caffeine use: Yes Place of Residence: Home Review of Systems General: Fever Respiratory: Cough, Shortness of Breath, SOB with Excertion Gastrointestinal: Diarrhea Physical Examination - Physical Exam General: Alert, In no apparent distress HEENT: Atraumatic, PERRLA, Mucous membr. moist/pink, EOMI, Sclerae nonicteric Neck: Supple, 2+ carotid pulse no bruit, No LAD, Without JVD or thyroid abnormality Respiratory: Normal air movement, Rhonchi/gurgles Cardiovascular: Regular rate/rhythm, Normal S1 S2 Gastrointestinal: Normal bowel sounds, No tenderness Musculoskeletal: No tenderness Integumentary: No rashes Neurological: Normal gait, Normal speech, Normal strength at 5/5 x4 extr, Normal tone, Normal affect Lymphatics: No axilla or inguinal lymphadenopathy - Studies Laboratory Data (last 24 hrs) 12/22/20 18:02: Sodium 135 L, Potassium 3.2 L, BUN 12, Creatinine 1.07, Glucose 116 H, Magnesium 1.8, Total Bilirubin 0.6, AST 230 H D, ALT 164 H D, Alkaline Phosphatase 75 12/22/20 17:10: PT 11.9, INR 1.03 12/22/20 17:10: WBC 6.80 D, Hgb 14.3, Hct 42.2, Plt Count 249 D Assessment and Plan - Problems (Diagnosis) (1) Pneumonia due to COVID-19 virus Current Visit: Yes Status: Acute (2) HTN (hypertension) Current Visit: Yes Status: Chronic Qualifiers: Hypertension type: unspecified Qualified Code(s): I10 - Essential (primary) hypertension - Plan pulm consulted, RT consulted room air sats daily, sats for home O2 continue IV steroids, covid supplement, and ivermectin daily CRP, ferritin, and procalcitonin BP stable, reconcile and continue home medications DVT ppx Discharge Plan: Home Plan to discharge in: 48 Hours - Advance Directives Does patient have a Living Will: No Does patient have a Durable POA for Healthcare: No - Code Status/Comfort Care Code Status Assessed: Yes (full code ) Critical Care: No Time Spent Managing Pts Care (In Minutes): 70
[2020-12-22] MEDS ORDERED: ACETAMINOPHEN 500 MG TAB PO PRN (23:12)
[2020-12-22] MEDS ORDERED: ONDANSETRON 4 MG/2 ML VIAL IV PRN (23:12)
[2020-12-22] MEDS ORDERED: MELATONIN 5 MG TABLET PO PRN (23:12)
[2020-12-22] MEDS ORDERED: MORPHINE 2 MG/ML SYR IV PRN (23:12)
[2020-12-23 01:51] VITALS: BMI 25.0
[2020-12-23 03:36] LABS: Absolute Lymphocytes (CBC) 0.5 K/uL (0.7-4.9); Basophils % 0.4 % (0-1.3); Hematocrit 39.9 % (39.6-49.0); Lymphocytes % 8.7 % (15.3-44.8); MPV 9.1 fL (7.6-11.3); RBC Red Blood Cell Count 4.53 M/uL (4.33-5.43)
[2020-12-23 04:38] LABS: Albumin 2.6 g/dL (3.4-5.0); Bilirubin Total 0.5 mg/dL (0.2-1.0); Ferritin 5009.5 ng/mL (26-388); Phosphorus 2.9 mg/dL (2.5-4.9); Potassium 4.2 mmol/L (3.5-5.1); Protein, Total 6.9 g/dL (6.4-8.2)
--- NOTE | 2020-12-23 08:40 | P.CNS ---
Date of Consult: 12/23/20 (pt agreed to TV) Primary Care Provider: Abdullahi Chief Complaint: covid pneumonia History of Present Illness: Age 70 aW resp frailure from COVID. Diarhea and fever Allergies No Known Drug Allergies Allergy (Verified 12/23/20 01:03) Unknown Home Medications: Losartan Potassium 100 mg PO DAILY 12/23/20 Metoprolol Tartrate 100 mg PO DAILY 12/23/20 - Past Medical/Surgical History Diabetic: No -: HTN -: HYPERLIPIDEMIA - Family History Mother Medical History: Heart disease Father Medical History: Cancer - Social History Smoking Status: Unknown if ever smoked Alcohol use: Yes CD- Drugs: No Caffeine use: Yes Place of Residence: Home Review of Systems General: Weakness Respiratory: Cough, Shortness of Breath Gastrointestinal: Diarrhea Physical Examination Temp Pulse Resp BP Pulse Ox 97.4 F 82 20 118/72 91 12/23/20 07:42 12/23/20 07:42 12/23/20 07:42 12/23/20 07:42 12/23/20 07:42 General: Alert, Oriented x3, Cooperative, Mild distress Laboratory Data (last 24 hrs) 12/22/20 18:02: Sodium 135 L, Potassium 3.2 L, BUN 12, Creatinine 1.07, Glucose 116 H, Magnesium 1.8, Total Bilirubin 0.6, AST 230 H D, ALT 164 H D, Alkaline Phosphatase 75 12/22/20 17:10: PT 11.9, INR 1.03 12/22/20 17:10: WBC 6.80 D, Hgb 14.3, Hct 42.2, Plt Count 249 D - Problems (1) Pneumonia due to COVID-19 virus Current Visit: Yes Status: Acute Plan: PT age 70 AW COVID penumonia/ Doign well/ On NCO2/ LAbs and CT reviewed/ Home O2 ordered/ poss DC am
[2020-12-23] MEDS: ZINC SULFATE 220 MG CAP PO SCH (09:00)
[2020-12-23] MEDS: VITAMIN D 1000 UNIT TAB PO SCH (09:00)
[2020-12-23] MEDS: IVERMECTIN 3 MG TABLET PO SCH (09:00)
[2020-12-23] MEDS: ASPIRIN EC 81 MG TAB PO SCH (09:00)
[2020-12-23] MEDS: THIAMINE HCL 100 MG TABLET PO SCH (09:00)
[2020-12-23] MEDS: ASCORBIC ACID 500 MG TABLET PO SCH ×4 (09:00→20:59)
[2020-12-23] MEDS: FAMOTIDINE 20 MG TAB PO SCH ×2 (09:00→20:59)
[2020-12-23] MEDS: METHYLPREDNISOLONE 125 MG INJ IV SCH ×2 (09:00→20:59)
[2020-12-23] MEDS ORDERED: ASCORBIC ACID 500 MG TABLET ONE ×4 (09:36→20:52)
[2020-12-23] MEDS ORDERED: THIAMINE HCL 100 MG TABLET ONE (09:36)
[2020-12-23] MEDS ORDERED: METHYLPREDNISOLONE 125 MG INJ ONE (09:36)
[2020-12-23] MEDS ORDERED: VITAMIN D 1000 UNIT TAB ONE (09:37)
[2020-12-23] MEDS ORDERED: FAMOTIDINE 20 MG TAB ONE ×3 (09:37→21:24)
[2020-12-23] MEDS ORDERED: ZINC SULFATE 220 MG CAP ONE (09:37)
[2020-12-23] MEDS ORDERED: ASPIRIN EC 81 MG TAB PO ONE (09:37)
--- NOTE | 2020-12-23 15:00 | P.PN ---
Subjective Date of Service: 12/23/20 Primary Care Provider: Abdullahi Chief Complaint: covid pneumonia Patient maintained on 4 L oxygen by nasal cannula. Physical Examination - Vital Signs Temperature: 97.4 F Blood Pressure: 118/72 Pulse: 82 Respirations: 20 Pulse Ox (%): 91 - Physical Exam General: Alert, In no apparent distress Neck: JVD not distended Respiratory: Other (Nonlabored breathing) Cardiovascular: Regular rate/rhythm, Normal S1 S2 Gastrointestinal: Soft and benign, Non-distended Musculoskeletal: No swelling Integumentary: No rashes Neurological: Normal strength at 5/5 x4 extr - Studies Laboratory Data (last 24 hrs) 12/22/20 18:02: Sodium 135 L, Potassium 3.2 L, BUN 12, Creatinine 1.07, Glucose 116 H, Magnesium 1.8, Total Bilirubin 0.6, AST 230 H D, ALT 164 H D, Alkaline Phosphatase 75 12/22/20 17:10: PT 11.9, INR 1.03 12/22/20 17:10: WBC 6.80 D, Hgb 14.3, Hct 42.2, Plt Count 249 D Assessment And Plan - Current Problems (Diagnosis) (1) Pneumonia due to COVID-19 virus Current Visit: Yes Status: Acute (2) HTN (hypertension) Current Visit: Yes Status: Chronic Qualifiers: Hypertension type: unspecified Qualified Code(s): I10 - Essential (primary) hypertension - Plan COVID 19 treatment protocol. IV steroid, bronchodilators p.r.n. Pulmonary consult. Titrate oxygen. Continue home medications.
[2020-12-23] MEDS ORDERED: RIVAROXABAN 20 MG TABLET PO ONE (16:32)
[2020-12-23] MEDS ORDERED: RIVAROXABAN 10 MG TABLET PO SCH (17:00)
[2020-12-23] MEDS ORDERED: METHYLPREDNISOLONE 40 MG INJ ONE (20:52)
[2020-12-24 03:24] LABS: Absolute Lymphocytes (CBC) 0.6 K/uL (0.7-4.9); Basophils % 0.1 % (0-1.3); Hematocrit 38.6 % (39.6-49.0); MPV 9.2 fL (7.6-11.3); RBC Red Blood Cell Count 4.41 M/uL (4.33-5.43)
[2020-12-24 03:44] LABS: Albumin 2.6 g/dL (3.4-5.0); Bilirubin Total 0.5 mg/dL (0.2-1.0); Potassium 3.8 mmol/L (3.5-5.1); Protein, Total 6.8 g/dL (6.4-8.2)
[2020-12-24 05:00] LABS: Blood Morphology Comment NOT SEEN (NOT SEEN); Platelet Estimate ADEQ
[2020-12-24] MEDS ORDERED: POTASSIUM CL SA 10 MEQ TAB PO ONE ×2 (06:22→09:00)
[2020-12-24] MEDS: ASPIRIN EC 81 MG TAB PO SCH (08:43)
[2020-12-24] MEDS: METOPROLOL TAR 50 MG TAB PO SCH (08:44)
[2020-12-24] MEDS: VITAMIN D 1000 UNIT TAB PO SCH (08:45)
[2020-12-24] MEDS: ZINC SULFATE 220 MG CAP PO SCH (08:45)
[2020-12-24] MEDS: THIAMINE HCL 100 MG TABLET PO SCH (08:45)
[2020-12-24] MEDS: FAMOTIDINE 20 MG TAB PO SCH ×2 (08:45→20:22)
[2020-12-24] MEDS: ASCORBIC ACID 500 MG TABLET PO SCH ×4 (08:45→20:23)
[2020-12-24] MEDS: METHYLPREDNISOLONE 125 MG INJ IV SCH ×2 (08:45→20:25)
[2020-12-24] MEDS: LOSARTAN POTASSIUM 50 MG TABLET PO SCH (08:46)
[2020-12-24] MEDS ORDERED: FAMOTIDINE 20 MG TAB ONE (09:00)
[2020-12-24] MEDS ORDERED: METHYLPREDNISOLONE 125 MG INJ ONE (09:00)
[2020-12-24] MEDS ORDERED: ASPIRIN 81 MG CHEWABLE TABLET ONE (09:00)
[2020-12-24] MEDS ORDERED: ASCORBIC ACID 500 MG TABLET ONE (09:03)
[2020-12-24] MEDS ORDERED: METOPROLOL TAR 50 MG TAB ONE (09:03)
[2020-12-24] MEDS ORDERED: THIAMINE HCL 100 MG TABLET ONE (09:04)
[2020-12-24] MEDS ORDERED: VITAMIN D 1000 UNIT TAB ONE (09:04)
[2020-12-24] MEDS ORDERED: ZINC SULFATE 220 MG CAP ONE (09:04)
[2020-12-24] MEDS: RIVAROXABAN 20 MG TABLET PO SCH (16:58)
--- NOTE | 2020-12-24 17:56 | P.PN ---
Subjective Date of Service: 12/24/20 Primary Care Provider: Abdullahi Chief Complaint: covid pneumonia No major improvement from yesterday. Patient maintained on 6 L of oxygen by nasal cannula. Physical Examination - Vital Signs Temperature: 98.2 F Blood Pressure: 141/79 Pulse: 70 Respirations: 20 Pulse Ox (%): 91 - Physical Exam General: Alert, In no apparent distress, Oriented x3 Neck: JVD not distended Respiratory: Other (Nonlabored breathing) Cardiovascular: Regular rate/rhythm, Normal S1 S2 Gastrointestinal: Soft and benign, Non-distended Musculoskeletal: No swelling Integumentary: No rashes Neurological: Normal strength at 5/5 x4 extr Assessment And Plan - Current Problems (Diagnosis) (1) Pneumonia due to COVID-19 virus Current Visit: Yes Status: Acute (2) HTN (hypertension) Current Visit: Yes Status: Chronic Qualifiers: Hypertension type: unspecified Qualified Code(s): I10 - Essential (primary) hypertension - Plan COVID 19 treatment protocol. IV steroid, bronchodilators p.r.n. Vitamin supplementation Pulmonary input appreciated. Dr. Crawford is assisting with management. Titrate oxygen. Continue home medications.
[2020-12-24] MEDS ORDERED: POTASSIUM 25 MEQ EFFERV TAB PO ONE (20:00)
[2020-12-24] MEDS: BARICITINIB 2 MG TABLET PO SCH (20:24)
[2020-12-25 06:07] LABS: Absolute Lymphocytes (CBC) 0.9 K/uL (0.7-4.9); Basophils % 0.3 % (0-1.3); Hematocrit 40.6 % (39.6-49.0); Lymphocytes % 7.4 % (15.3-44.8); MPV 9.5 fL (7.6-11.3); RBC Red Blood Cell Count 4.51 M/uL (4.33-5.43)
[2020-12-25 06:20] LABS: Albumin 2.3 g/dL (3.4-5.0); Bilirubin Total 0.5 mg/dL (0.2-1.0); Potassium 4.2 mmol/L (3.5-5.1); Protein, Total 6.2 g/dL (6.4-8.2)
[2020-12-25 06:42] LABS: C-Reactive Protein 46.8 mg/L (<3.00); Ferritin 3689.3 ng/mL (26-388)
[2020-12-25] MEDS: ASPIRIN EC 81 MG TAB PO SCH (08:11)
[2020-12-25] MEDS: ASCORBIC ACID 500 MG TABLET PO SCH ×4 (08:11→21:13)
[2020-12-25] MEDS: THIAMINE HCL 100 MG TABLET PO SCH (08:11)
[2020-12-25] MEDS: VITAMIN D 1000 UNIT TAB PO SCH (08:11)
[2020-12-25] MEDS: ZINC SULFATE 220 MG CAP PO SCH (08:11)
[2020-12-25] MEDS: FAMOTIDINE 20 MG TAB PO SCH ×2 (08:11→21:13)
[2020-12-25] MEDS: BARICITINIB 2 MG TABLET PO SCH (08:12)
[2020-12-25] MEDS: IVERMECTIN 3 MG TABLET PO SCH (08:12)
[2020-12-25] MEDS: METHYLPREDNISOLONE 125 MG INJ IV SCH ×2 (08:12→21:13)
[2020-12-25] MEDS: LOSARTAN POTASSIUM 50 MG TABLET PO SCH (08:14)
[2020-12-25] MEDS: METOPROLOL TAR 50 MG TAB PO SCH (08:15)
--- NOTE | 2020-12-25 14:32 | P.PN ---
Subjective Date of Service: 12/25/20 Primary Care Provider: Abdullahi Chief Complaint: covid pneumonia Subjective: No new changes (no acute events overnight. feels slightly more short of breath this morning. otherwise doing ok - appetite ok, voiding without issue) Review of Systems 10-point ROS is otherwise unremarkable Physical Examination - Vital Signs Temperature: 98.0 F Blood Pressure: 115/62 Pulse: 70 Respirations: 18 Pulse Ox (%): 90 Assessment & Plan Physician Review Additional Text: Physical Exam General: Alert, In no apparent distress, Oriented x3 HEENT: Normal conjunctiva, sclera anicteric Respiratory: Nonlabored respirations on 6 L nasal cannula Cardiovascular: Regular rate/rhythm, Normal S1 S2, no edema Gastrointestinal: Soft and benign, Non-distended Musculoskeletal: No joint swelling Integumentary: No rashes Problem list Acute hypoxemic respiratory failure secondary to COVID-19 pneumonia Hypertension Continue covid treatment per protocol continue steroids, vitamin supplementation pulm consulted wean O2 as tolerated PT consulted, spoke with RN who is concerned she won't be able to care for him at home trend inflammatory markers VTE: xarelto code: full Dispo: anticipate dc home in 2-3 days, with home O2 Time Spent Managing Pts Care (In Minutes): 40
[2020-12-25] MEDS: RIVAROXABAN 20 MG TABLET PO SCH (17:00)
[2020-12-26 05:37] LABS: Absolute Lymphocytes (CBC) 0.8 K/uL (0.7-4.9); Basophils % 0.2 % (0-1.3); Hematocrit 38.1 % (39.6-49.0); Lymphocytes % 6.8 % (15.3-44.8); RBC Red Blood Cell Count 4.32 M/uL (4.33-5.43)
[2020-12-26 06:14] LABS: Albumin 2.5 g/dL (3.4-5.0); Bilirubin Total 0.7 mg/dL (0.2-1.0); C-Reactive Protein 29.2 mg/L (<3.00); Ferritin 2614.9 ng/mL (26-388); Potassium 4.2 mmol/L (3.5-5.1); Protein, Total 6.4 g/dL (6.4-8.2)
--- NOTE | 2020-12-26 06:28 | P.PN ---
Subjective Date of Service: 12/26/20 Primary Care Provider: Abdullahi Chief Complaint: covid pneumonia Subjective: No new changes (feels about the same as yesterday maybed slghtly better, remains on 6L NC. able to ambulate without dizziness) Review of Systems 10-point ROS is otherwise unremarkable Physical Examination - Vital Signs Temperature: 97 F Blood Pressure: 146/90 Pulse: 70 Respirations: 18 Pulse Ox (%): 94 Assessment & Plan Physician Review Additional Text: Physical Exam General: Alert, In no apparent distress, Oriented x3 HEENT: Normal conjunctiva, sclera anicteric Respiratory: Nonlabored respirations on 6 L nasal cannula Cardiovascular: Regular rate/rhythm, Normal S1 S2, no edema Gastrointestinal: Soft and benign, Non-distended Musculoskeletal: No joint swelling Integumentary: No rashes Problem list Acute hypoxemic respiratory failure secondary to COVID-19 pneumonia Hypertension Continue covid treatment per protocol continue steroids, vitamin supplementation pulm consulted wean O2 as tolerated PT consulted, spoke with RN who is concerned she won't be able to care for him at home. is dealing with COVID at home trend inflammatory markers VTE: xarelto code: full Dispo: anticipate dc home in ~2 days, with home O2 Time Spent Managing Pts Care (In Minutes): 35
--- NOTE | 2020-12-26 07:36 | RAD REPORT ---
EXAM DESCRIPTION: RAD - Chest Single View - 12/26/2020 5:07 am CLINICAL HISTORY: hypoxia, covid f/u COMPARISON: Chest Single View dated 12/22/2020; Chest Single View dated 12/17/2020; CHEST SINGLE VIEW d ated 05/14/2014; CHEST SINGLE VIEW dated 12/02/2013 FINDINGS: Mild to moderate patchy multifocal airspace disease which is similar to 12/22/2020 per The heart size is within normal limits.No acute osseous abnormality. No significant pleural effusions or pneumothorax. IMPRESSION: Mild to moderate bilateral airspace disease concerning for multifocal pneumonia.
[2020-12-26] MEDS: ASCORBIC ACID 500 MG TABLET PO SCH ×4 (09:00→21:43)
[2020-12-26] MEDS: VITAMIN D 1000 UNIT TAB PO SCH (09:00)
[2020-12-26] MEDS: METOPROLOL TAR 50 MG TAB PO SCH (09:00)
[2020-12-26] MEDS: LOSARTAN POTASSIUM 50 MG TABLET PO SCH (09:00)
[2020-12-26] MEDS: ASPIRIN EC 81 MG TAB PO SCH (09:11)
[2020-12-26] MEDS: BARICITINIB 2 MG TABLET PO SCH (09:11)
[2020-12-26] MEDS: BENZONATATE 100 MG CAP PO PRN ×2 (09:12→21:43)
[2020-12-26] MEDS: FAMOTIDINE 20 MG TAB PO SCH ×2 (09:12→21:43)
[2020-12-26] MEDS: METHYLPREDNISOLONE 125 MG INJ IV SCH ×2 (09:13→21:43)
[2020-12-26] MEDS: ZINC SULFATE 220 MG CAP PO SCH (09:13)
[2020-12-26] MEDS: THIAMINE HCL 100 MG TABLET PO SCH (09:13)
[2020-12-26] MEDS: RIVAROXABAN 20 MG TABLET PO SCH (16:28)
[2020-12-27 06:12] LABS: Hematocrit 36.3 % (39.6-49.0); MPV 9.1 fL (7.6-11.3); RBC Red Blood Cell Count 3.97 M/uL (4.33-5.43)
[2020-12-27 06:14] LABS: BUN Blood Urea Nitrogen 34 mg/dL (7-18); Bicarbonate 30 mmol/L (21-32); Ferritin > 2000.0 ng/mL (26-388); Glucose Level 161 mg/dL (74-106); Potassium 4.3 mmol/L (3.5-5.1); Sodium Level 137 mmol/L (136-145)
[2020-12-27] MEDS: METHYLPREDNISOLONE 125 MG INJ IV SCH (09:54)
[2020-12-27] MEDS: ASPIRIN EC 81 MG TAB PO SCH (09:54)
[2020-12-27] MEDS: VITAMIN D 1000 UNIT TAB PO SCH (09:54)
[2020-12-27] MEDS: METOPROLOL TAR 50 MG TAB PO SCH (09:54)
[2020-12-27] MEDS: THIAMINE HCL 100 MG TABLET PO SCH (09:55)
[2020-12-27] MEDS: ZINC SULFATE 220 MG CAP PO SCH (09:55)
[2020-12-27] MEDS: ASCORBIC ACID 500 MG TABLET PO SCH ×3 (09:55→16:35)
[2020-12-27] MEDS: LOSARTAN POTASSIUM 50 MG TABLET PO SCH (09:55)
[2020-12-27] MEDS: FAMOTIDINE 20 MG TAB PO SCH (09:55)
[2020-12-27] MEDS: BARICITINIB 2 MG TABLET PO SCH (09:58)
[2020-12-27 13:40] VITALS: O2SAT 95
--- NOTE | 2020-12-27 14:13 | P.DS ---
Admission Date: 12/22/20 Discharge Date: 12/27/20 Primary Care Provider: Abdullahi Disposition: DC HOME/HOME HEALTH CARE Discharge Condition: GOOD Reason for Admission: covid pneumonia Consultations: Pulmonology - Dr. Crawford Procedures: CXR (12/22): Interstitial and alveolar opacities have developed in both lung edmondson relatively sparing the left upper lung field. Findings are progressive from December 17. No cavitation or mass. Heart and vasculature are normal. No measurable pleural effusion and no pneumothorax. No acute bony abnormality seen. No acute aortic findings suspected. IMPRESSION: Mild bilateral COVID-19 pneumonia pattern progressive from December 17 CTA chest (12/22): No pulmonary emboli are identified. The aorta as imaged shows no acute or suspicious finding. No pericardial thickening or effusion. Scattered ground-glass opacification throughout the lung edmondson with no consolidation, mass or cavitation. No endobronchial lesion. Minimal atelectasis in the posterior left gutter. No pleural effusion or pleural thickening. No mediastinal or hilar suspicious masses. No chest wall masses or abnormal axillary lymphadenopathy. IMPRESSION: No pulmonary emboli identified. CXR (12/26): Mild to moderate patchy multifocal airspace disease which is similar to 12/22/2020 per The heart size is within normal limits.No acute osseous abnormality. No significant pleural effusions or pneumothorax. IMPRESSION: Mild to moderate bilateral airspace disease concerning for multifocal pneumonia. Problem list Acute hypoxemic respiratory failure secondary to COVID-19 pneumonia Hypertension Brief History of Present Illness: 70 yo M who presents with fever and SOB. He was 83% on RA at home and was brought in by EMS. he says his symptoms began 5 days ago, and he tested positive for COVID on Thursday. He reports cough, diarrhea and fever. CTPE shows moderate pneumonia, no evidence of pulmonary embolism. Ddimer 1448. Ferritin 4891. AST 230, ALT 164. CRP 122. K 3.2. Hospital Course: Patient was found to have COVID-19 pneumonia. He had gradual improvement with treatment per Covid protocol with steroids, vitamin supplementation, oxygen supplementation. His inflammatory markers significantly improved. He has weaned down to 3 L nasal cannula. He was evaluated by physical therapy and able to ambulate without assistance. He reported feeling much better and requesting to be discharged home. He is discharged home to continue treatment with steroids, aspirin, vitamin supplementation, and oxygen supplementation. Follow-up with Dr. Crawford in 1 week Follow-up with PCP in 3-5 days. Vital Signs/Physical Exam: Physical Exam General: Alert, In no apparent distress, Oriented x3 HEENT: Normal conjunctiva, sclera anicteric Respiratory: Nonlabored respirations on 3L nasal cannula Cardiovascular: Regular rate/rhythm, Normal S1 S2, no edema Gastrointestinal: Soft and benign, Non-distended Integumentary: No rashes Temp Pulse Resp BP Pulse Ox 98 F 71 20 138/71 91 12/27/20 08:00 12/27/20 09:54 12/27/20 08:00 12/27/20 09:54 12/27/20 08:00 Laboratory Data at Discharge: WBC 10.10 K/uL (4.3-10.9) 12/27/20 05:22 Hgb 12.6 g/dL (13.6-17.9) L 12/27/20 05:22 Hct 36.3 % (39.6-49.0) L 12/27/20 05:22 Plt Count 397 K/uL (152-406) 12/27/20 05:22 PT 11.9 SECONDS (9.5-12.5) 12/22/20 17:10 INR 1.03 12/22/20 17:10 Sodium 137 mmol/L (136-145) 12/27/20 05:22 Potassium 4.3 mmol/L (3.5-5.1) 12/27/20 05:22 BUN 34 mg/dL (7-18) H 12/27/20 05:22 Creatinine 1.06 mg/dL (0.55-1.3) 12/27/20 05:22 Glucose 161 mg/dL (74-106) H 12/27/20 05:22 Phosphorus 2.9 mg/dL (2.5-4.9) 12/23/20 03:14 Magnesium 2.0 mg/dL (1.8-2.4) 12/23/20 03:14 Total Bilirubin 0.7 mg/dL (0.2-1.0) 12/26/20 05:14 AST 72 U/L (15-37) H 12/26/20 05:14 ALT 151 U/L (12-78) H 12/26/20 05:14 Alkaline Phosphatase 92 U/L (45-117) 12/26/20 05:14 Home Medications: Losartan Potassium 100 mg PO DAILY 12/23/20 Metoprolol Tartrate 100 mg PO DAILY 12/23/20 Ascorbic Acid [Vitamin C*] 500 mg PO QID 30 Days #120 tablet 12/27/20 Aspirin [Aspirin EC 81 MG] 2 tab PO DAILY 30 Days #60 tablet. 12/27/20 Benzonatate [Tessalon Perle*] 100 mg PO TID PRN 7 Days #21 cap 12/27/20 Cholecalciferol (Vitamin D3) [Vitamin D 1000 Iu Tab*] 4,000 unit PO DAILY 30 Days #120 tab 12/27/20 predniSONE [Prednisone*] 20 mg PO SEECOM 14 Days #21 tab 12/27/20 New Medications: Aspirin [Aspirin EC 81 MG] 2 tab PO DAILY 30 Days #60 tablet. predniSONE [Prednisone*] 20 mg PO SEECOM 14 Days #21 tab Benzonatate [Tessalon Perle*] 100 mg PO TID PRN 7 Days #21 cap PRN Reason: Cough Ascorbic Acid [Vitamin C*] 500 mg PO QID 30 Days #120 tablet Cholecalciferol (Vitamin D3) [Vitamin D 1000 Iu Tab*] 4,000 unit PO DAILY 30 Days #120 tab Physician Discharge Instructions: You are found to have COVID-19 pneumonia, you had improvement with steroids, vitamin supplementation, oxygen supplementation, and baricitinib. You are d ischarged home to continue treatment with steroids, vitamin supplementation, and aspirin 162 mg daily. You are also discharged home with oxygen supplementation. Goals to maintain oxygen saturation of 90-92%. On day of discharge you were requiring 3 L to maintain the saturation. It is expected that your oxygen saturation will drop as you ambulate. This should improve over time. You can increase your oxygen as needed You will need to take it easy the following days, rest in between movement. Follow-up with Dr. Crawford in 1 week. Call his office to schedule the telephone appointment. Diet: AHA Activity: Ad refugio Followup: Unknown,U [Primary Care Provider] - Time spent managing pt's care (in minutes): 45
[2020-12-27] MEDS: RIVAROXABAN 20 MG TABLET PO SCH (16:35)
[2020-12-27 17:43] VITALS: BP 115/63; TEMP 98.4
== END 2020-12-27 18:30 | disposition home health service (06) | DRG 177 ==
LOC: ER 15:06 → ERHOLD 21:30 → 4TH 12-24 14:32
PROVIDERS: ADMIT Internal Medicine; ATTEND Internal Medicine
DX: U07.1 COVID-19 (principal); J12.82 Pneumonia due to coronavirus disease 2019; J96.01 Acute respiratory failure with hypoxia; I10 Essential (primary) hypertension
CPT/HCPCS: 36415; 71045; 71275; 80048; 80053; 80076; 82728; 82805; 83605; 83735; 83880; 84100; 84132; 84145; 84484; 85025; 85027; 85379; 85610; 86140; 93005; 94760; 96361; 96374; 97116; 97161; 99285; J2920; J2930; J7040; Q9967